=== PATIENT | female | born 1980 | race Caucasian/White ===

== ENCOUNTER → 2024-06-19 16:19 | Outpatient (REF) | payer BC, SELFPAY | LOC: WDC 16:19 | PROVIDERS: ATTENDING PHYSICIAN Nurse Practitioner Adult Health; FAMILY PHYSICIAN Family Medicine | DX: Z12.31 Encounter for screening mammogram for malignant neoplasm of breast (principal) | CPT/HCPCS: 76830; 76856; 77063; 77067 ==

== ENCOUNTER → 2024-11-21 15:26 | Outpatient (REF) | payer BC, SELFPAY | LOC: RAD 15:26 | PROVIDERS: ATTENDING PHYSICIAN Nurse Practitioner Adult Health; FAMILY PHYSICIAN Family Medicine | DX: N92.4 Excessive bleeding in the premenopausal period (principal); N83.209 Unspecified ovarian cyst, unspecified side | CPT/HCPCS: 76830; 76856 ==